=== PATIENT | male | born 1995 | race Caucasian/White ===

== ENCOUNTER 2022-07-24 09:05 | Emergency (ER) | payer OTHER, SELFPAY ==
[2022-07-24 09:06] VITALS: BP 135/80; PULSE 94; RESP 12; TEMP 36.8; O2SAT 100; BMI 28.3
--- NOTE | 2022-07-24 09:25 | EDS_ITS ---
HPI History of Present Illness Chief Complaint: Upper Extremity Injury Detail of Chief Complaint: Left shoulder pain Informant: patient Onset/Context/Timing Current Severity: 04/23 Narrative Narrative: Patient presents to the emergency department complaint of left shoulder pain that started a couple of days ago. Patient states initially was mild but then the next day he woke up and he had more discomfort. He powered through it at work. He states that he did not do anything to injure his shoulder. He does not do a lot of repetitive motions above his head. Patient states the pain te nds to radiate down towards his elbow. Denies recent travel or surgery. Pain worse with movement. He did take Advil and seem to help for a while but then the pain comes back when the Advil wears off. Patient went to urgent care today and they referred him to the emergency department. Patient is right-hand dominant. At rest currently rates his pain a 3 out of 10. PFSH PFS Home Medications famotidine 20 mg tablet 20 mg PO BID ##28 11/24/16 [Rx Last Taken Unknown] naproxen 500 mg tablet 500 mg PO BID PRN #20 tabs 11/24/16 [Rx Last Taken Unknown] naproxen 500 mg tablet (Naprosyn) 500 mg PO BID PRN pain #20 tabs 07/24/22 [Rx Last Taken Unknown] Allergy/AdvReac Type Severity Reaction Status Date / Time No Known Allergies Allergy Verified 07/24/22 09:06 Social History Smoking Status: Never smoker ROS ROS ED Review of Systems ROS Unobtainable: other Constitutional Constitutional ED: Reports lethargy; Denies chills, fever(s), sweats or weight loss Eyes Eyes: Denies blurry vision, change in vision or diplopia ENT ENT ED: Denies rhinorrhea or sore throat Cardiovascular Cardiovascular: Denies chest pain, orthopnea or racing heartbeat Respiratory/Chest Respiratory/Chest: Denies cough, dyspnea, dyspnea on exertion, orthopnea or sputum Gastrointestinal Gastrointestinal: Denies abdominal pain, diarrhea, nausea or vomiting Genitourinary Genitourinary ED: Denies dysuria, hematuria or urinary frequency Musculoskeletal Musculoskeletal: Reports other Details: Left shoulder pain ; Denies arthralgias, back pain, myalgias or neck pain Integumentary Denies abscess, Abrasions or rash Neurologic Neurologic: Denies headache(s) or weakness Psychiatric Psychiatric: Denies anxiety, depression or suicidal thoughts Endocrine Endocrinology: Denies polydipsia, polyphagia or polyuria Hematologic/Lymphatic Hematologic/Lymphatic: Denies easy bleeding, easy bruising or lymphadenopathy Allergic/Immunologic Allergic/Immunologic ED: Denies mouth swelling, tongue swelling or urticaria EXAM Physical Exam Const Vital Signs: 07/24/22 09:06 Temperature 98.3 F Temperature Source Temporal Pulse Rate 94 Respiratory Rate 12 Blood Pressure 135/80 H Blood Pressure Mean 98 Pulse Ox 100 Oxygen Delivery Method Room Air Positive well nourished and well developed General Appearance ED: well developed and NAD HEENT Reports TM's clear and moist mucous membranes normocephalic and atraumatic; Negative for trauma or tenderness Tympanic Membrane ED: Yes TM's clear Eyes PERRL and EOMs intact bilaterally General Eye ED: Negative for pale conjunctiva or scleral icterus Neck no lymphadenopathy, supple and no JVD General: Negative for tenderness Chest Wall inspection of chest normal and palpation of chest normal Chest: Negative for tenderness Resp normal respiratory effort and clear to auscultation bilaterally Effort and Inspection: Negative for respiratory distress or pain with movement Auscultation: Negative for rhonchi, wheezes or diminished lung sounds Cardio regular rate, regular rhythm, S1 normal heart sound, S2 normal heart sound and no murmurs Peripheral Pulses: pulses 2+ throughout GI normal to inspection, nondistended, normoactive bowel sounds, soft to palpation, non-tender, non-distended and no masses Back/Spine no CVA tenderness and no thoracic nor lumbar tenderness Extremity Extremity Narrative: Left shoulder-there is no erythema or warmth. Patient is able to abduct the shoulder to about 90 degrees. There is no evidence of dislocation or subluxation clinically. There is no sulcus sign. Patient does have tenderness over the bicep tendon at the shoulder. Neurovascularly intact distally. There is no edema. General Extremety ED: Negative for edema General Extremity: Negative for edema Neuro oriented x3, CN's II-XII intact bilaterally, no sensory deficits noted and gait normal Sensorium / Orientation: awake, alert, oriented to person, oriented to place and oriented to time Motor Exam: strength 5/5 throughout and strength abnormal Psych mental status grossly normal Skin no rashes or lesions noted and no wounds MDM MDM MDM Narrative Medical decision making narrative: Patient presents with atraumatic left shoulder pain that seems to respond to anti-inflammatories. Discussed obtaining x-rays but felt these would likely be negative as he had no trauma and there is no evidence of dislocation. Clinically I suspect he may have a bicep tendinitis. We will hold off on x-ray imaging. Patient will be given a sling for comfort. He will be given naproxen and referral to orthopedics to follow-up within the next 5 to 7 days. Discharge Plan Triage Chief Complaint: Upper Extremity Injury ED Provider: Asha Monte Dx/Rx/DC Orders Clinical Impression: Acute pain of left shoulder, Tendinitis Instructions: ED Tendonitis, ED Shoulder Pain, Uncertain Cause Prescriptions: New naproxen [Naprosyn] 500 mg tablet 500 mg PO BID PRN (Reason: pain) Qty: 20 0RF No Action naproxen 500 MG tablet 500 mg PO BID PRN Qty: 20 0RF famotidine 20 MG tablet 20 mg PO BID Qty: 28 0RF Referrals: Danny Alvarez DO [Med Staff - Active Staff] - 5-7 Days Disposition Disposition: Home, Self Care
[2022-07-24 09:43] VITALS: BP 132/86; PULSE 91; RESP 18; TEMP 36.9; O2SAT 99
== END 2022-07-24 09:44 | disposition home or self-care (01) ==
PROVIDERS: Emergency Provider Emergency Medicine; Visit Provider Emergency Medicine
DX: M25.512 Pain in left shoulder (principal); M77.9 Enthesopathy, unspecified
CPT/HCPCS: 99282; A4216